=== PATIENT | female | born 1990 | race Caucasian/White ===

== ENCOUNTER 2023-02-01 10:46 | Inpatient (IN) | payer BC, MEDICAID ==
[2023-02-01] VITALS (13 sets, daily range): BP systolic 114–130; BP diastolic 69–87; PULSE 68–98; RESP 14–18; TEMP 97.3–98.2; O2SAT 95–100
[~2023-02-01] VITALS: Ht 160 cm; Wt 78.2 kg
[~2023-02-01 10:46] MED LIST: NO HOME MEDS
[2023-02-01 11:15] LABS: BASOPHILS # (AUTO) 0.1 X10'3 (0-0.2); BASOPHILS % (AUTO) 0.8 % (0-1); EOSINOPHILS # (AUTO) 0.1 X10'3 (0-0.9); EOSINOPHILS % (AUTO) 0.7 % (0-6); HEMATOCRIT 39.3 % (35.0-45.0); HEMOGLOBIN 12.7 g/dl (12.0-16.0); LYMPHOCYTES % (AUTO) 41.2 % (21-51); MEAN CORPUSCULAR HEMOGLOBIN 28.2 PG (27.0-31.0); MEAN CORPUSCULAR HGB CONC 32.4 g/dL (33.0-36.5); MEAN CORPUSCULAR VOLUME 87.2 FL (78-98); MEAN PLATELET VOLUME 8.7 FL (7.4-10.4); MONOCYTES # (AUTO) 0.5 X10'3 (0-0.9); MONOCYTES % (AUTO) 6.4 % (2-12); NEUTROPHILS # (AUTO) 3.7 X10'3 (1.8-7.7); NEUTROPHILS % (AUTO) 50.9 % (42-75); PLATELET COUNT 261 X10'3 (140-440); RED CELL DISTRIBUTION WIDTH 14.7 % (11.5-14.5); WHITE BLOOD COUNT 7.3 X10'3 (4.5-11.0)
[2023-02-01 11:40] LABS: ALANINE AMINOTRANSFERASE 37 U/L (12-78); ALBUMIN 3.7 G/DL (3.4-5.0); ALBUMIN/GLOBULIN RATIO 0.9 (1.1-1.5); ALKALINE PHOSPHATASE 81 IU/L (46-116); ANION GAP 9 (8-16); ASPARTATE AMINO TRANSFERASE 18 U/L (10-37); BILIRUBIN,TOTAL 0.1 MG/DL (0.1-1.0); BLOOD UREA NITROGEN 12 MG/DL (7-18); BUN/CREATININE RATIO 17.1 (10.0-20.0); CHLORIDE 106 MMOL/L (99-107); GLUCOSE 103 MG/DL (70-104); LIPASE 115 U/L (73-393); POTASSIUM 4.1 MMOL/L (3.5-5.1); SODIUM 140 MMOL/L (135-145); TOTAL CARBON DIOXIDE 24.9 MMOL/L (24-32); TOTAL PROTEIN 7.9 G/DL (6.4-8.2); eCRCL 95 ML/MIN; eGFR > 90 ML/MIN
[2023-02-01 11:51] LABS: CALCIUM 9.2 MG/DL (8.5-10.1)
[2023-02-01] MEDS ORDERED: ondansetron/PF 4mg/2ml inj IV ONE (14:25)
[2023-02-01] MEDS ORDERED: morphine 4 MG/ML inj SYRINge IV ONE (14:25)
[2023-02-01 14:59] LABS: BILIRUBIN,URINE NEGATIVE (Neg); CLARITY,URINE CLOUDY (Clear); COLOR,URINE YELLOW (Yellow); GLUCOSE, URINE NEGATIVE (Neg); KETONES,URINE NEGATIVE (Neg); LEUKOCYTE ESTERASE ,URINE NEGATIVE (Neg); NITRITES, URINE NEGATIVE (Neg); OCCULT BLOOD,URINE SMALL (Neg); PROTEIN,URINE NEGATIVE (Neg); URINE HCG NEGATIVE (NEG); UROBILINOGEN,URINE 0.2 E.U/dL (0.2-1.0)
[2023-02-01] MEDS ORDERED: iohexol 300mg/ml 100ml inj. ONE (15:07)
[2023-02-01 15:08] LABS: SQUAMOUS EPITHELIAL CELL,UR MANY /LPF (FEW); UA COLLECTION TYPE CLN CATCH MIDSTREAM
[2023-02-01 15:09] LABS: BACTERIA,URINE FEW /HPF (Neg); RBC,URINE 0-2 /HPF (0-2); WBC,URINE 0-4 /HPF (0-4)
--- NOTE | 2023-02-01 16:12 | NUR ---
Pt c/o 09/21 ABD pain and no nausea. MD notified of Morphine and Zofran being held at this time. okayed
[2023-02-01] MEDS ORDERED: piperacillin/tazo 3.375gm/50ml 50 ML IV ONE (17:25)
[2023-02-01] MEDS ORDERED: BUPIVAcaine/PF 2.5mg/ml (0.25%) 10ml vial ONE (17:32)
[2023-02-01] MEDS ORDERED: NO HOME MEDS (17:40)
[2023-02-01 17:51] LABS: OCCULT BLOOD STOOL NEGATIVE (Neg)
[2023-02-01] MEDS ORDERED: HYDROcodone/acetaminophen 10/325mg tab PO PRN (17:55)
[2023-02-01] MEDS ORDERED: mag hydrox/Alum hydrox/simeth 30ml oral suspension PO PRN (17:55)
[2023-02-01] MEDS ORDERED: HYDROcodone/acetaminophen 5mg/325mg tablet PO PRN (17:55)
[2023-02-01] MEDS ORDERED: metoclopramide 5 mg/ml inj IV PRN (17:55)
[2023-02-01] MEDS ORDERED: magnesium hydroxide 30ml (MOM) UD suspension PO PRN (17:55)
[2023-02-01] MEDS ORDERED: acetaminophen 325mg tablet PO PRN ×2 (17:55)
[2023-02-01] MEDS ORDERED: morphine 2 MG/ML inj. syringe IV PRN ×2 (17:55→18:40)
[2023-02-01] MEDS ORDERED: sevoflurane 250ml liquid IH ONE (18:34)
[2023-02-01] MEDS ORDERED: proCHLORperazine 10 MG/2 ml inj IV PRN (18:40)
[2023-02-01] MEDS ORDERED: meperidine/PF 25mg/ml syringe IV PRN ×3 (18:40)
[2023-02-01] MEDS ORDERED: ondansetron/PF 4mg/2ml inj IV PRN (18:40)
[2023-02-01] MEDS ORDERED: morphine 4 MG/ML inj SYRINge IV PRN (18:40)
[2023-02-01] MEDS ORDERED: ringers solution, lacted 1,000 ML IV SCH (18:40)
[2023-02-01] MEDS ORDERED: fentaNYL/PF 50MCG/1 ML 2ML syringe ONE (18:42)
[2023-02-01] MEDS ORDERED: midazolam 1 mg/ML 2ml injection ONE (18:43)
[2023-02-01] MEDS ORDERED: propofol inj 20 ML IV ONE (18:43)
[2023-02-01] MEDS ORDERED: BUPIVAcaine/PF 2.5 mg/ml (0.25%) 30ml vial IJ ONE (19:11)
[2023-02-01] MEDS ORDERED: rocuronium 10mg/ml inj IV ONE (19:14)
[2023-02-01] MEDS ORDERED: dexamethasone sod phosphate 4mg/ml inj. ONE (19:20)
[2023-02-01] MEDS ORDERED: ondansetron/PF 4mg/2ml inj ONE (19:20)
[2023-02-01] MEDS ORDERED: sugammadex 200mg/2ml injection IV ONE (19:21)
--- NOTE | 2023-02-01 19:36 | NUR ---
Received from OR via BED IN STABLE CONDITION , accompanied by Anesthesiologist and WOOL HANDLER report given by WOOL HANDLER AND Anesthesiolgist. Addendum: 02/01/23 at 1954 by Susan Jaquez RN Amended: Links added.
[2023-02-01] MEDS: docusate sod 100mg capsule PO SCH (20:00)
--- NOTE | 2023-02-01 20:26 | NUR ---
PATIENT DISCHARGED FROM PACU IN STABLE CONDITION AFTER REPORT GIVEN TO RN TAKING OVER PATIENTS CARE. PATIENT TRANSFERRED TO ROOM [facility] VIA BED WITH RNX2. Addendum: 02/01/23 at 2030 by Susan Jaquez RN Amended: Links added.
[2023-02-01] MEDS: dextrose 5%-1/2 normal saline 1,000 ML IV SCH (20:50)
[2023-02-01] MEDS: pantoprazole 40MG/NS 100ML BAG 100 ML IV SCH (21:36)
[2023-02-01] MEDS: ondansetron/PF 4mg/2ml inj IV PRN (21:43)
[2023-02-01] MEDS: morphine 2 MG/ML inj. syringe IV PRN (21:44)
[2023-02-01] MEDS: piperacillin/tazo 4.5gm/100ml 100 ML IV SCH (23:54)
[2023-02-02 00:15] VITALS: BP 118/80; PULSE 77; RESP 18; TEMP 98; O2SAT 97
[2023-02-02] MEDS: morphine 2 MG/ML inj. syringe IV PRN (03:06)
[2023-02-02 03:44] LABS: BASOPHILS % (AUTO) 0.3 % (0-1); EOSINOPHILS % (AUTO) 0 % (0-6); HEMATOCRIT 38.1 % (35.0-45.0); HEMOGLOBIN 12.3 g/dl (12.0-16.0); LYMPHOCYTES % (AUTO) 10.2 % (21-51); MEAN CORPUSCULAR HGB CONC 32.2 g/dL (33.0-36.5); MEAN CORPUSCULAR VOLUME 87.1 FL (78-98); MEAN PLATELET VOLUME 8.8 FL (7.4-10.4); MONOCYTES # (AUTO) 0.1 X10'3 (0-0.9); MONOCYTES % (AUTO) 1.1 % (2-12); NEUTROPHILS # (AUTO) 8.5 X10'3 (1.8-7.7); NEUTROPHILS % (AUTO) 88.4 % (42-75); PLATELET COUNT 259 X10'3 (140-440); RED BLOOD COUNT 4.37 X10'6 (4.20-5.60); RED CELL DISTRIBUTION WIDTH 14.9 % (11.5-14.5); WHITE BLOOD COUNT 9.7 X10'3 (4.5-11.0)
[2023-02-02 04:00] VITALS: BP 115/65; PULSE 72; RESP 18; TEMP 97.9
[2023-02-02 04:20] LABS: ALBUMIN 3.3 G/DL (3.4-5.0); ANION GAP 10 (8-16); BLOOD UREA NITROGEN 9 MG/DL (7-18); BUN/CREATININE RATIO 9.6 (10.0-20.0); CALCIUM 8.9 MG/DL (8.5-10.1); CHLORIDE 103 MMOL/L (99-107); CREATININE 0.94 MG/DL (0.40-0.90); GLUCOSE 196 MG/DL (70-104); POTASSIUM 4.2 MMOL/L (3.5-5.1); SODIUM 138 MMOL/L (135-145); TOTAL CARBON DIOXIDE 25.5 MMOL/L (24-32); eCRCL 70 ML/MIN; eGFR 69 ML/MIN
[2023-02-02 06:41] VITALS: BP 115/66; PULSE 83; RESP 16; TEMP 98.7; O2SAT 96
--- NOTE | 2023-02-02 07:07 | NUR ---
Problems reprioritized. Patient report given, questions answered & plan of care reviewed with PAUL. Addendum: 02/02/23 at 0707 by Casey Hodge RN Amended: Links added.
[2023-02-02] MEDS: pantoprazole 40MG/NS 100ML BAG 100 ML IV SCH (07:48)
[2023-02-02] MEDS: docusate sod 100mg capsule PO SCH (07:48)
[2023-02-02] MEDS: dextrose 5%-1/2 normal saline 1,000 ML IV SCH (07:54)
[2023-02-02] MEDS: ondansetron/PF 4mg/2ml inj IV PRN (08:08)
[2023-02-02 08:12] VITALS: RESP 16
--- NOTE | 2023-02-02 08:14 | NUR ---
BM stated by matthias Addendum: 02/02/23 at 0816 by Ruchi Workman RN Amended: Links added.
[2023-02-02] MEDS: piperacillin/tazo 4.5gm/100ml 100 ML IV SCH (08:46)
[2023-02-02 10:52] VITALS: BP 110/67; PULSE 73; RESP 14; TEMP 98.4; O2SAT 97
== END 2023-02-02 12:53 | disposition home or self-care (01) | DRG 343 ==
LOC: ER 10:47 → ED HOLD 17:56 → ORTHO 4S 20:25
PROVIDERS: ADMIT Internal Medicine; ATTEND Internal Medicine
PROC: BW211ZZ Computerized Tomography (CT Scan) of Abdomen and Pelvis using Low Osmolar Contrast (ICD-10-PCS; 2023-02-01)
PROC: 0DTJ0ZZ Resection of Appendix, Open Approach (ICD-10-PCS; principal; 2023-02-01 18:34)
DX: K35.30 Acute appendicitis with localized peritonitis, without perforation or gangrene (principal); N83.202 Unspecified ovarian cyst, left side; N83.8 Other noninflammatory disorders of ovary, fallopian tube and broad ligament; Z98.51 Tubal ligation status; Z98.891 History of uterine scar from previous surgery; Z88.8 Allergy status to other drugs, medicaments and biological substances
CPT/HCPCS: 99285; Z7506; Z7508; 36415; 74177; 80048; 80053; 81001; 81025; 82272; 83690; 85025; 87081; A4215; A4618; A7000; C9113; G0378; J1100; J2175; J2250; J2270; J2405; J2543; J2704; J3010; J3490; J7030; J7042; Q9967